=== PATIENT | male | born 1950 | race Caucasian/White ===

== ENCOUNTER 2023-07-01 13:44 | Emergency (ER) | payer OTHER ==
[2023-07-01 14:06] VITALS: BP 165/83; PULSE 85; RESP 17; TEMP 98; BMI 26.2
== END 2023-07-01 17:40 | disposition home or self-care (01) ==
LOC: JER 13:44 → JERFT 13:44
PROC: 0HQGXZZ Repair Left Hand Skin, External Approach (ICD-10-PCS; principal; 2023-07-01)
DX: S61.211A Laceration without foreign body of left index finger without damage to nail, initial encounter (principal); R20.2 Paresthesia of skin; W20.8XXA Other cause of strike by thrown, projected or falling object, initial encounter; Y99.0 Civilian activity done for income or pay
CPT/HCPCS: 73130-TC-LT-FY; 99283-25

== ENCOUNTER 2023-07-03 15:04 | Emergency (ER) | payer OTHER ==
[2023-07-03 15:13] VITALS: BP 130/77; PULSE 83; RESP 18; TEMP 98.2; BMI 26.2
== END 2023-07-03 15:38 | disposition home or self-care (01) ==
LOC: JERFT 15:04
DX: S61.211D Laceration without foreign body of left index finger without damage to nail, subsequent encounter (principal); Z48.01 Encounter for change or removal of surgical wound dressing; X58.XXXD Exposure to other specified factors, subsequent encounter
CPT/HCPCS: 99281-25

== ENCOUNTER 2023-07-16 15:06 | Emergency (ER) | payer OTHER ==
[2023-07-16 15:16] VITALS: BP 140/82; PULSE 78; RESP 20; TEMP 98.2; BMI 26.2
== END 2023-07-16 16:37 | disposition home or self-care (01) ==
LOC: JERFT 15:06
DX: Z48.02 Encounter for removal of sutures (principal)
CPT/HCPCS: 99281-25

== ENCOUNTER 2024-09-18 10:40 | Day surgery (SDC) | payer OTHER ==
[2024-09-18 10:55] VITALS: BMI 26.5
[2024-09-18 10:59] VITALS: RESP 16
[2024-09-18 13:52] VITALS: TEMP 98
[2024-09-18 15:15] VITALS: BP 133/77; PULSE 66
== END 2024-09-18 14:40 | disposition home or self-care (01) ==
LOC: JASU-ENDO 10:40
PROVIDERS: ATTEND Internal Medicine Gastroenterology
PROC: 0DBL8ZX Excision of Transverse Colon, Via Natural or Artificial Opening Endoscopic, Diagnostic (ICD-10-PCS; principal; 2024-09-18 11:00)
DX: Z12.11 Encounter for screening for malignant neoplasm of colon (principal); D12.3 Benign neoplasm of transverse colon; K57.30 Diverticulosis of large intestine without perforation or abscess without bleeding; Z86.0100 Personal history of colon polyps, unspecified
CPT/HCPCS: 88305-TC